=== PATIENT | female | born 1985 | race American Indian/Alaskan Native ===

== ENCOUNTER 2018-03-08 09:34 | Emergency (ER) | payer OTHER ==
[2018-03-08] MEDS ORDERED: BENADRYL IV ONE (11:23)
[2018-03-08] MEDS ORDERED: NACL 0.9% 1000 ML 1,000 ML IV ONE (11:23)
[2018-03-08] MEDS ORDERED: REGLAN IV ONE (11:23)
[2018-03-08 11:58] LABS: Bilirubin,Urine NEG (Negative); Blood,Urine NEG (Negative); Color,Urine Yellow (Yellow); Mucus,Urine FEW /HPF; Protein,Urine <15 mg/dL mg/dL (Negative); Urobilinogen,Urine < 2.0 mg/dL (<2.0)
[2018-03-08 12:05] LABS: HCG Qualitative,Urine Negative (Negative)
--- NOTE | 2018-03-08 12:25 | Emergency Department Report ---
ED Headache HPI - General Chief Complaint: Headache Stated Complaint: BAD HEAD ACHE FOR TWO DAYS Time Seen by Provider: 03/08/18 11:23 - History of Present Illness Initial Comments: This is a 33-year-old female nontoxic, well nourished in appearance, no acute signs of distress presents to the ED with c/o of acute on chronic headache. Patient describes headache as diffuse with level of 3 out of 10. Patient denies thunderclap headache. Patient denies any radiation of pain. Patient denies any head trauma. Patient denies any visual changes. Patient denies worse headache. Patient stated that darkness makes headache better and bright lights make the headache worse. Patient denies any numbness, tingling, fever, chills, nausea, vomiting, chest pain, shortness of breath, stiff neck. Patient denies any radiation of pain. Patient denies any allergies. Past medical history includes migraine headaches. Timing/Duration: episodic Quality: mild, achy Head Injury Location: other (diffuse) Recent Head Trauma: no recent headache/trauma, occasional headaches Associated Symptoms: denies symptoms. denies: confusion, fatigue, facial pain, fever/chills, flushing, loss of consciousness, nausea/vomiting, nasal congestion , nasal drainage, numbness in legs/feet, rash, seizures, sinus infection, stiff neck, vision changes, weakness Allergies/Adverse Reactions: Allergies No Known Allergies Allergy (Unverified 03/24/14 15:53) Home Medications: Ambulatory Orders ALBUTEROL Inhaler [ProAir HFA Inhaler] 03/24/14 Fluticasone Propionate [Flovent Diskus] 03/24/14 Sulfamethoxazole/Trimethoprim [Bactrim Ds] 1 each PO BID #28 tablet 03/24/14 Acetaminophen/Codeine [Acetaminophen-Codeine #3 TAB] 1 tab PO Q6H PRN #12 tab Ibuprofen [Motrin 400 MG tab] 400 mg PO Q8H PRN #30 tablet 07/23/14 Ondansetron [Zofran] 4 mg PO Q6HR PRN #15 tablet 07/23/14 Sulfamethoxazole/Trimethoprim [Bactrim Ds] 1 each PO Q12H #6 tablet 07/23/14 Butalb/Acetamin/Caff 50-325-40 [Fioricet] 1 tab PO Q6HR PRN #12 tab 03/08/18 ED Review of Systems ROS: Stated complaint: BAD HEAD ACHE FOR TWO DAYS Other details as noted in HPI Constitutional: denies: chills, fever Eyes: denies: eye pain, eye discharge, vision change ENT: denies: ear pain, throat pain Respiratory: denies: cough, shortness of breath, wheezing Cardiovascular: denies: chest pain, palpitations Endocrine: no symptoms reported Gastrointestinal: denies: abdominal pain, nausea, diarrhea Genitourinary: denies: urgency, dysuria, discharge Musculoskeletal: denies: back pain, joint swelling, arthralgia Skin: denies: rash, lesions Neurological: headache. denies: weakness, paresthesias Psychiatric: denies: anxiety, depression Hematological/Lymphatic: denies: easy bleeding, easy bruising ED Past Medical Hx - Past Medical History Hx GERD: Yes Hx Asthma: Yes - Surgical History Past Surgical History?: No - Social History Smoking Status: Current Every Day Smoker Substance Use Type: None - Medications Home Medications: Home Medications Medication Instructions Recorded Confirmed Last Taken Type ALBUTEROL Inhaler [ProAir HFA 03/24/14 03/24/14 Unknown History Inhaler] Fluticasone Propionate [Flovent 03/24/14 03/24/14 Unknown History Diskus] Sulfamethoxazole/Trimethoprim 1 each PO BID #28 tablet 03/24/14 Unknown Rx [Bactrim Ds] Acetaminophen/Codeine 1 tab PO Q6H PRN #12 tab 07/23/14 Unknown Rx [Acetaminophen-Codeine #3 TAB] Ibuprofen [Motrin 400 MG tab] 400 mg PO Q8H PRN #30 tablet 07/23/14 Unknown Rx Ondansetron [Zofran] 4 mg PO Q6HR PRN #15 tablet 07/23/14 Unknown Rx Sulfamethoxazole/Trimethoprim 1 each PO Q12H #6 tablet 07/23/14 Unknown Rx [Bactrim Ds] Butalb/Acetamin/Caff 50-325-40 1 tab PO Q6HR PRN #12 tab 03/08/18 Unknown Rx [Fioricet] ED Physical Exam - General Limitations: No Limitations General appearance: alert, in no apparent distress - Head Head exam: Present: atraumatic, normocephalic - Eye Eye exam: Present: normal appearance, PERRL, EOMI Pupils: Present: normal accommodation - ENT ENT exam: Present: normal exam, mucous membranes moist - Neck Neck exam: Present: normal inspection, full ROM. Absent: tenderness, meningismus, lymphadenopathy - Respiratory Respiratory exam: Present: normal lung sounds bilaterally. Absent: respiratory distress, wheezes, rales, rhonchi, stridor, chest wall tenderness, accessory muscle use, decreased breath sounds, prolonged expiratory - Cardiovascular Cardiovascular Exam: Present: regular rate, normal rhythm, normal heart sounds. Absent: bradycardia, tachycardia, irregular rhythm, systolic murmur, diastolic murmur, rubs, gallop - GI/Abdominal GI/Abdominal exam: Present: soft, normal bowel sounds. Absent: distended, tenderness, guarding, rebound, rigid, diminished bowel sounds - Extremities Exam Extremities exam: Present: normal inspection, full ROM, normal capillary refill. Absent: tenderness, joint swelling - Back Exam Back exam: Present: normal inspection, full ROM. Absent: tenderness, CVA tenderness (R), CVA tenderness (L), muscle spasm, paraspinal tenderness, vertebral tenderness, rash noted - Neurological Exam Neurological exam: Present: alert, oriented X3, CN II-XII intact, normal gait - Expanded Neurological Exam Expanded Patient oriented to: Present: person, place, time Cranial nerves: EOM's Intact: Normal, Gag Reflex: Normal, Facial Sensation: Normal Cerebellar function: Finger to Nose: Normal Upper motor neuron: Pronator Drift: Normal, Sensory Extinction: Normal Sensory exam: Upper Extremity Light Touch: Normal, Upper Extremity Pin Prick: Normal, Upper Extremity Temperature: Normal, UE 2 Point Discrimination: Normal, Lower Extremity Light Touch: Normal, Lower Extremity Pin Prick: Normal, Lower Extremity Temperature: Normal, LE 2 Point Discrimination: Normal Motor strength exam: RUE: 5, LUE: 5, RLE: 5, LLE: 5 Best Eye Response ([place]): (4) open spontaneously Best Motor Response ([place]): (6) obeys commands Best Verbal Response ([place]): (5) oriented [place] Total: 15 - Psychiatric Psychiatric exam: Present: normal affect, normal mood - Skin Skin exam: Present: warm, dry, intact, normal color. Absent: rash ED Course Vital Signs 03/08/18 09:50 Temperature 98.0 F Pulse Rate 66 Respiratory 16 Rate Blood Pressure 133/89 O2 Sat by Pulse 100 Oximetry - Reevaluation(s) Reevaluation #1: 03/08/18 12:23 Patient is speaking in full sentences with no signs of distress noted. ED Medical Decision Making - Medical Decision Making This is a 33-year-old female that presents with headache. Patient is stable and was examined by me. Patient is neurologically stable. There is no stiff neck or neck pain. Vital signs are stable. Patient is afebrile. Ct of head unremarkable. Patient received Benadryl, Reglan, and 1 L of normal saline which the patient stated that headache has subsided and resolved. Patient was instructed not to operate any machinery after discharged due to drowsiness of Benadryl. Patient stated that a family member will drive patient home. Patient is discharged with Fioricet. Patient was referred to Follow-up with a primary care/neurologist doctor in 3-5 days or if symptoms worsen and continue return to emergency room as soon as possible. At time of discharge, the patient does not seem toxic or ill in appearance. No acute signs of distress noted. Patient agrees to discharge treatment plan of care. No further questions noted by the patient. Critical care attestation.: If time is entered above; I have spent that time in minutes in the direct care of this critically ill patient, excluding procedure time. ED Disposition Clinical Impression: Headache Qualifiers: Headache type: unspecified Headache chronicity pattern: acute headache Intractability: not intractable Qualified Code(s): R51 - Headache Disposition: DC-01 TO HOME OR SELFCARE Is pt being admited?: No Does the pt Need Aspirin: No Condition: Stable Instructions: Acute Headache (ED), Butalbital/Aspirin/Caffeine (By mouth) Additional Instructions: Follow-up with a primary care doctor in 3-5 days or if symptoms worsen and continue return to emergency room as soon as possible. Prescriptions: Butalb/Acetamin/Caff 50-325-40 [Fioricet] 1 tab PO Q6HR PRN #12 tab PRN Reason: Headache Referrals: PRIMARY CAREMD [Primary Care Provider] - 3-5 Days ERA MONROE MD [Staff Physician] - 3-5 Days [facility] [Outside] - 3-5 Days [facility] [Outside] - 3-5 Days Forms: Work/School Release Form(ED)
--- NOTE | 2018-03-08 13:57 | Cat Scan Report ---
CT HEAD WITHOUT CONTRAST: HISTORY: Headache. TECHNIQUE: Sequential 2.5mm CT images. COMPARISON: none. FINDINGS: Cerebral Parenchyma: Within normal limits. Cerebellum: Within normal limits. Brainstem: Within normal limits. Ventricles: Normal. Sella: Normal. Extra-axial spaces: Normal. Basal Cisterns: Normal. Intracranial Hemorrhage: None. Midline Shift: None. Calvarium: Normal. Sinuses: Normal. Mastoid Air Cells: Normal. Visualized Orbits: Normal. IMPRESSION: Cranial CT scan within normal limits.
[2018-03-08 14:23] VITALS: BP 134/98
== END 2018-03-08 14:23 | disposition home or self-care (01) ==
LOC: ED 09:34
DX: R51 Headache (principal); K21.9 Gastro-esophageal reflux disease without esophagitis; J45.909 Unspecified asthma, uncomplicated; F17.200 Nicotine dependence, unspecified, uncomplicated
CPT/HCPCS: 70450; 81001; 81025; 96374; 96375; 99284; J1200; J2765; J7030; 96361